=== PATIENT | female | born 1975 | race Caucasian/White ===

== ENCOUNTER 2022-10-25 08:45 | Inpatient (IN) | payer BC, MEDICAID, SELFPAY ==
[2022-10-25] VITALS (8 sets, daily range): BP systolic 99–123; BP diastolic 60–72; PULSE 80–87; RESP 16–20; TEMP 36.8–37; O2SAT 95–99; BMI 28.6
--- NOTE | 2022-10-25 | CT_ITS ---
Ordering Provider/Ordering MD: Lilian Liu Date of Service: 10/25/22 Procedure(s): CT ankle RT wo con* [id number] Accession Number(s): [id number] TOTAL EXAM DLP: 208.48 mGy-cm MTDD
--- NOTE | 2022-10-25 09:38 | XRR_ITS ---
PROCEDURE INFORMATION: Exam: XR Right Ankle Exam date and time: 10/25/2022 9:50 AM Age: 47 years old Clinical indication: Swelling, leg or foot; Prior surgery; Patient HX: PT has had multiple prior surgeries on the RT ankle and leg. PT states that she just had a recent one and was released to walk on it with a boot however, she woke up with a knot on the lateral side of RT ankle; Additional info: Pain/swelling TECHNIQUE: Imaging protocol: Radiologic exam of the Right ankle. Views: 3 or more views. COMPARISON: No relevant prior studies available. FINDINGS: Bones/joints: Along intramedullary ranjeet extends down the tibia and across the tibiotalar and subtalar joints in satisfactory position. There are multiple screws across these joints in satisfactory position. There is deformity of the distal tibia and fibula from old healed fractures. Some patchy new bone formation is present along the lateral aspect of the joint no definite acute bony abnormalities are seen. Soft tissues: Prominent soft tissue swelling. XR/XR ankle RT min 3V* [id number] IMPRESSION: 1. Prominent soft tissue swelling. 2. Chronic bony changes consistent with old trauma and orthopedic surgery.
[2022-10-25] MEDS: ondansetron 2 mg/ML SDV 2 mL 4 MG IVP (11:50)
[2022-10-25] MEDS: morphine 4 mg/mL SDV 1 mL IVP ×2 (11:50→18:33)
[2022-10-25] MEDS: sodium chloride 0.9% 1,000 ML 999 ML IV (11:51)
[2022-10-25 12:23] LABS: Basophils % 0.2 %; Hematocrit 38.4 % (37.0-47.0); Hemoglobin 12.3 g/dL (11.5-15.3); Lymphocytes # 0.8 10^3/uL (0.8-4.8); Lymphocytes % 5.4 %; Mean Corpuscular Hemoglobin 30.4 pg (28.0-34.0); Mean Platelet Volume 12.1 fL (7.4-10.4); Monocytes # 0.7 10^3/uL (0.2-0.9); Neutrophils # 12.68 10^3/uL (1.8-7.7); Neutrophils % 88.5 %; Nucleated Red Blood Cells % 0 %; Platelet Count 201 10^3/cmm (130-400); Red Blood Count 4.04 10^6/uL (4.1-5.3); Red Cell Distribution Width 14.5 % (12.1-15.1); White Blood Count 14.3 10^3/uL (4.0-10.0)
[2022-10-25 12:25] LABS: Erythrocyte Sedimentation Rate 18 mm/hr (0-15)
[2022-10-25 12:35] LABS: Alanine Aminotransferase 9 U/L (0-33); Albumin Level 4.1 g/dL (3.5-5.2); Alkaline Phosphatase 120 U/L (35-105); Anion Gap 15.6 (5-19); Aspartate Amino Transferase 14 U/L (0-32); Blood Urea Nitrogen 19 mg/dL (6-20); Calcium 9.7 mg/dL (8.5-10.5); Carbon Dioxide 23 mmol/L (22-29); Chloride 104 mmol/L (98-107); Globulin 3.7 g/dL (1.3-4.6); Glomerular Filtration Rate 88.9 mL/min (90-130); Glucose 105 mg/dL (65-115); Osmolality Calculated 291 mOsm/kg (285-295); Potassium 3.6 mmol/L (3.5-5.1); Sodium 139 mmol/L (136-145); Total Bilirubin 0.5 mg/dL (0.15-1.2); Total Protein 7.8 g/dL (6.6-8.7)
--- NOTE | 2022-10-25 12:53 | CT_ITS ---
WS: [id number] NONCONTRAST CT RIGHT FOOT AND ANKLE. TECHNIQUE: Noncontrast CT RIGHT foot and ankle. with coronal and sagittal reformatted images. CLINICAL INFORMATION: post-op infection concern for osteomyelitis COMPARISON: None. DLP: All CT scans at [facility] use at least one of these dose optimization techniques: automated e xposure control; mA and/or kV adjustment per patient size (includes targeted exams where dose is matc hed to clinical indication); or iterative reconstruction. FINDINGS: Soft tissue swelling about the foot and ankle. Chronic bony changes compatible with prior trauma and multiple prior surgeries. Intramedullary tibial ranjeet extends across the tibiotalar and subtalar joints appears in good position. Chronic fracture deformities involving the distal tibia and fibula with ev idence of callus formation. Screw fixation across the talocalcaneal joint appears in good position. L ateral screw fixation across the talus appears in good position. Prominent plantar calcaneal spur. Presumed bone graft material or heterotopic bone formation about the ankle along the distal syndesmos is and extending about the lateral malleolus into the soft tissues with associated fluid collection. Fluid collection about the lateral ankle measures approximately 3.1 x 2.5 x 2.8 cm. This may be posto perative. Recommend correlation with infectious symptoms. Diffuse soft tissue edema worse about the l ateral malleolus. CT/CT ankle RT wo con* [id number] IMPRESSION: 1. Extensive posttraumatic and postsurgical changes involving the ankle. No co mparisons. 2. Hardware appears in good position. Distal tibial ranjeet with tibiotalar and s ubtalar fusion. Solid appearing fusion at the tibiotalar joint. 3. Chronic comminuted fracture deformities with evidence of healing callus for mation involving the distal tibia and distal fibula. 4. Fluid collection about the lateral ankle in the area of concern at the late ral malleolus measuring 3.1 x 2.5 x 2.8 cm with surrounding areas of ossificati on likely bone graft material or heterotopic bone formation. This may represent a postoperative fluid collection but is suspicious for infection considering c linical symptoms. 5. Diffuse soft tissue edema with skin thickening lower leg and ankle likely d ue to cellulitis.
--- NOTE | 2022-10-25 12:53 | CT_ITS ---
WS: [id number] NONCONTRAST CONTRAST CT RIGHT FOOT TECHNIQUE: Noncontrast CT RIGHT foot with coronal and sagittal reformatted images. CLINICAL INFORMATION: post-op infection concern for osteomyelitis COMPARISON: None. DLP: 208.[address] scans at [facility] use at least one of these dose optimization techniques: automated e xposure control; mA and/or kV adjustment per patient size (includes targeted exams where dose is matc hed to clinical indication); or iterative reconstruction. FINDINGS: Extensive posttraumatic and postsurgical changes involving the ankle with hardware as discussed on th e concurrent ankle CT. Solid appearing bony bridging at the tibiotalar joint. Distal tibial ranjeet exten ds into the calcaneus. Talocalcaneal fixation screws. Fluid collection about the lateral malleolus as described on the CT ankle with surrounding heterotopi c bone material or bone graft material. This may be postoperative but suspicious for infection consid ering clinical symptoms. Skin thickening lower leg and ankle extending into the foot suspicious for c ellulitis. Diffuse demineralization throughout the foot and ankle. Due to extensive demineralization with postoperative and posttraumatic changes of osteomyelitis difficult to assess and quantify. Fluid collection about the lateral malleolus measures 3.1 x 2[address]/CT foot RT wo con* [id number] IMPRESSION: 1. Postoperative and posttraumatic changes as discussed above. 2. Fluid collection about the lateral malleolus suspicious for infection consi dering clinical symptoms measuring 3.1 x 2.5 x 2.8 cm. 3. Osteomyelitis is difficult to assess due to extensive demineralization with postoperative and posttraumatic deformities.
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
[2022-10-25 13:54] LABS: Lactate (Lactic Acid level) 0.9 mmol/L (0.5-2.2)
[2022-10-25] MEDS: morphine 4 mg/mL SDV 1 mL 2 MG IVP (15:29)
[2022-10-25] MEDS: vancomycin 1,000 MG in sodium chloride 0.9% 250 ML 250 MG IV (15:30)
--- NOTE | 2022-10-25 16:35 | P.CONIM_ITS ---
Providers/Reason For Consult Consulting Physician/Specialty*: Podiatry Reason for Consult*: Right ankle abscess Primary Care Provider: Jason Pulido DO History of Present Illness History of Present Illness Velvet Maloney is a 47 year old female who presents emergency department today 10/25/2022 with red, swollen, painful right ankle. Patient has a history of multiple surgeries to bilateral lower extremities. She most recently underwent a rear foot fusion with TTC nail by Dr. Young in [facility]. She states that her most recent surgery was 6 weeks ago. This past week she was told that she can begin weightbearing as tolerated in cam boot and cast was removed. She states that after bearing weight she had an increase in pain the morning after. She said that her ankle was red hot swollen and painful. This was noticed yesterday 10/24/2022. Her daughter advised her to come into the emergency department for further work-up and evaluation. Upon arriving to the emergency department she was noted to have leukocytosis with a CRP of 313. CT scan was performed which showed abscess to right lateral ankle. Plan was to transfer the patient back to [place] to be managed by her orthopedic team there. However, due to inability to receive new patients she will not be transferred. The plan is now to admit her here to [facility]. Podiatry was consulted for evaluation of the patient's right lower extremity. Patient does endorse nausea and vomiting over the past few days. Review of Systems General: Reports: 10 or more systems reviewed and unremarkable except in HPI and below Const: Reports: change in appetite and malaise; Denies: fever(s), chills or body aches Eyes: Denies: change in vision or blurry vision Card: Denies: chest pain, palpitations or irregular heart rhythm Resp: Denies: dyspnea GI: Reports: nausea and vomiting; Denies: abdominal pain or diarrhea Musc: Reports: extremity pain and joint stiffness Skin/Breast: Reports: skin tenderness and skin swelling; Denies: non-healing lesions or lesions Neuro: Denies: numbness in extremities Medications/Allergies Home Medications Medication Instructions Recorded Confirmed Last Taken Type acetaminophen 500 mg tablet 1,000 mg PO Q6H PRN Pain 10/25/22 10/25/22 Unknown History albuterol sulfate 90 mcg/actuation 2 puff inhalation QID PRN 10/25/22 10/25/22 Unknown History aerosol inhaler Shortness Of Breath bupropion HCl 150 mg tablet,12 hr 150 mg PO BID 10/25/22 10/25/22 10/25/22 History sustained-release celecoxib 100 mg capsule (Celebrex) 100 mg PO BID 10/25/22 10/25/22 10/25/22 History levothyroxine 25 mcg tablet 25 mcg PO QAM 10/25/22 10/25/22 10/25/22 History ropinirole 0.25 mg tablet 0.5 mg PO BEDTIME 10/25/22 10/25/22 10/24/22 History varenicline 1 mg tablet 1 mg PO BID 10/25/22 10/25/22 10/25/22 History Allergies Allergy/AdvReac Type Severity Reaction Status Date / Time No Known Allergies Allergy Verified 10/25/22 08:54 PFSH Acute PFSH: Surgical History (Updated 10/25/22 @ 13:43 by Alexx Caldera DO) History of ankle surgery Vitals/I&O/Wt Last Vital Signs Temp 98.6 F 10/25/22 08:54 Pulse 80 10/25/22 15:00 Resp 16 10/25/22 15:29 BP 99/60 10/25/22 15:00 Pulse Ox 95 10/25/22 15:29 O2 Del Method 10/25/22 08:54 Weight last 48 hrs Weight 167 lb Physical Exam Narrative: GENERAL: A&O x 3 VASCULAR: DP/PT pulses palpable 2/4 with CFT intact, <3seconds to distal digits. Severe edema to right ankle majority of swelling on lateral aspect of right ankle DERMATOLOGICAL: Right lateral ankle is warm to touch in comparison to surrounding skin. No open wounds or skin lesions noted. Diffuse erythema to lateral aspect of right ankle with centralized darkened discoloration over suspected area of abscess. Pain with palpation over the centralized darkened area with underlying fluctuance. MUSCULOSKELETAL: Tenderness with palpation of lateral ankle erythema. NEUROLOGICAL: Neurological sensation to the affected foot and ankle is present through L4-S1 dermatomes with no hyper/hypoesthesias, negative Tinel or Valleix's sign IMAGIN view x-rays of the right ankle that were taken in the emergency department were personally interpreted by me which show orthopedic hardware spanning the ankle joint subtalar joint well intact with no. Hardware radiolucency. No subcutaneous emphysema noted. Significant increase in soft tissue density to the lateral aspect of the right ankle with radiopaque material ballooning from the lateral aspect of the ankle joint likely flowable orthopedic cement. CT scan of the right ankle reviewed which shows fluid accumulation to lateral aspect of ankle at the level of the ankle joint in the area of soft tissue density highly suspicious for abscess. No subcutaneous emphysema visualized on CT scan. Data 10/25/22 11:47 10/25/22 11:47 Micro: Microbiology 10/25/22 13:47 Blood Culture - Preliminary Blood SPECIMEN COLLECTED 10/25/22 13:52 Blood Culture - Preliminary Blood SPECIMEN COLLECTED A&P Assessment and plan (1) Abscess of ankle: (2) Cellulitis of right ankle: (3) Pain in right ankle: Plan -Right lateral ankle abscess -Patient seen and evaluated in the ER -Labs and vitals reviewed -WBC 14.3 -HR 84 -RR 16 -Temp 98.6 -ESR 18 -CRP 313 -N.p.o. at midnight -Plan for OR incision and drainage of right ankle tomorrow 10/26/2022. Discussion was had with the patient regarding incision and drainage of right ankle to prevent worsening infection which could lead to infection of orthopedic hardware and ultimately amputation. Patient has agreed to the plan -Antibiotics: Continue vancomycin pending culture sensitivity from I&D. Discussion had with admitting physician that coverage will be adjusted pending results. Patient will likely need PICC line prior to discharge from hospital. I will discuss further with admitting physician after procedure tomorrow. -Pain: Managed by admitting physician -Weightbearing as tolerated to right foot -Keep right lower extremity elevated -Podiatry will round on patient tomorrow morning prior to surgery Consult Attestations Medical Necessity Statement: See above Coding Level of Care Code Acute Director Of Education And Training for [facility] Fwd Diagnoses Abscess of ankle L02.419 Cellulitis of right ankle L03.115 Pain in right ankle M25.571
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
[2022-10-25] MEDS: sodium chloride 0.9% 1,000 ML 75 ML IV (18:31)
[2022-10-25] MEDS: enoxaparin 40 mg/0.4 mL Syringe SUBCUT (18:32)
[2022-10-25] MEDS: acetaminophen 325 mg Tablet 650 MG PO (21:13)
[2022-10-25] MEDS: ropinirole 0.25 mg Tablet 0.5 MG PO (21:13)
[2022-10-26] VITALS (14 sets, daily range): BP systolic 95–122; BP diastolic 58–73; PULSE 72–90; RESP 14–20; TEMP 36.6–37.9; O2SAT 90–97
[2022-10-26] MEDS: morphine 4 mg/mL SDV 1 mL 2 MG IVP ×2 (00:08→10:34)
[2022-10-26 02:13] LABS: Basophils % 0.3 %; Eosinophils % 0.2 %; Hematocrit 34.3 % (37.0-47.0); Hemoglobin 10.8 g/dL (11.5-15.3); Lymphocytes # 1.4 10^3/uL (0.8-4.8); Lymphocytes % 12.9 %; Mean Corpuscular HGB Conc 31.5 g/dL (30.0-36.0); Mean Corpuscular Hemoglobin 30.3 pg (28.0-34.0); Mean Corpuscular Volume 96.3 fl (81-99); Mean Platelet Volume 12.3 fL (7.4-10.4); Monocytes # 0.7 10^3/uL (0.2-0.9); Monocytes % 6.4 %; Neutrophils # 8.37 10^3/uL (1.8-7.7); Neutrophils % 79.3 %; Nucleated Red Blood Cells % 0 %; Platelet Count 171 10^3/cmm (130-400); Red Blood Count 3.56 10^6/uL (4.1-5.3); Red Cell Distribution Width 14.9 % (12.1-15.1); White Blood Count 10.6 10^3/uL (4.0-10.0)
[2022-10-26 02:29] LABS: Estmated Average Glucose 94; Hemoglobin A1C 4.9 % (4.0-6.0)
[2022-10-26 02:34] LABS: Alanine Aminotransferase 8 U/L (0-33); Albumin Level 3.4 g/dL (3.5-5.2); Alkaline Phosphatase 108 U/L (35-105); Anion Gap 11.2 (5-19); Aspartate Amino Transferase 9 U/L (0-32); Blood Urea Nitrogen 10 mg/dL (6-20); Calcium 9.2 mg/dL (8.5-10.5); Carbon Dioxide 25 mmol/L (22-29); Chloride 105 mmol/L (98-107); Globulin 3.3 g/dL (1.3-4.6); Glomerular Filtration Rate 88.9 mL/min (90-130); Glucose 105 mg/dL (65-115); Osmolality Calculated 285 mOsm/kg (285-295); Potassium 3.2 mmol/L (3.5-5.1); Sodium 138 mmol/L (136-145); Total Bilirubin 0.4 mg/dL (0.15-1.2); Total Protein 6.7 g/dL (6.6-8.7)
[2022-10-26] MEDS: vancomycin 1,500 MG/300 ML PIGGYBACK 200 MG IV ×2 (03:04→16:24)
--- NOTE | 2022-10-26 06:26 | PC.NURSE ---
transported to outpt surgery via stretcher per ENDER Knapp.
--- NOTE | 2022-10-26 06:41 | P.ANESASSM_ITS ---
Pre-Anesthetic Assessment Height/Weight: Height 1.63 m Weight 73.482 kg Temp Pulse Resp BP Pulse Ox O2 Del Method 100.3 F H 90 19 H 112/72 92 10/26/22 04:00 10/26/22 04:00 10/26/22 04:00 10/26/22 04:00 10/26/22 04:00 10/25/22 20:52 Operation Date: 10/26/22 07:10 Proposed Procedures p Incision And Drainage of right ankle(Right) - Swapnil Browne DPM Familial anesthetic complications: None Was Beta Mumtaz taken within 24 hours: N/A Was Clonidine taken within 24 hours: N/A Last intake: Intake Last Liquid Date 10/25/22 Last Liquid Time 21:00 Last Solid Date 10/25/22 Last Solid Time 19:00 Social No alcohol and No tobacco Former smoker - recent quit Exam alert, oriented x 3, clear to auscultation bilaterally and regular rate & rhythm Airway Mallampati: Class II Dentition: other (no teeth) Pulmonary Chronic Obstructive Pulmonary Disease Metabolic Thyroid Disease Anesthetic Plan ASA status: 3 Anesthesia: MAC Risk of > 500 ml blood loss (7ml/kg in children): No Medications/Allergies Home Medications Medication Instructions Recorded Confirmed Last Taken Type acetaminophen 500 mg tablet 1,000 mg PO Q6H PRN Pain 10/25/22 10/25/22 Unknown History albuterol sulfate 90 mcg/actuation 2 puff inhalation QID PRN 10/25/22 10/25/22 Unknown History aerosol inhaler Shortness Of Breath bupropion HCl 150 mg tablet,12 hr 150 mg PO BID 10/25/22 10/25/22 10/25/22 History sustained-release celecoxib 100 mg capsule (Celebrex) 100 mg PO BID 10/25/22 10/25/22 10/25/22 History levothyroxine 25 mcg tablet 25 mcg PO QAM 10/25/22 10/25/22 10/25/22 History ropinirole 0.25 mg tablet 0.5 mg PO BEDTIME 10/25/22 10/25/22 10/24/22 History varenicline 1 mg tablet 1 mg PO BID 10/25/22 10/25/22 10/25/22 History Allergies Allergy/AdvReac Type Severity Reaction Status Date / Time No Known Allergies Allergy Verified 10/25/22 08:54 Current Medications Generic Name Dose Route Start Last Admin Trade Name Freq PRN Reason Stop Dose Admin Acetaminophen 650 mg 10/25/22 18:03 10/25/22 21:13 Acetaminophen 325 Mg Tablet PO 650 mg Q6H PRN Administration Mild/Mod Pain Or Temp >/= 101 Enoxaparin Sodium 40 mg 10/25/22 18:15 10/25/22 18:32 Enoxaparin 40 Mg/0.4 Ml Syringe SUBCUT 40 mg Q24H BONG Administration Sodium Chloride 1,000 mls @ 75 mls/hr 10/25/22 18:15 10/25/22 18:31 Sodium Chloride 0.9% IV 75 mls/hr .[id number] BONG Administration Sodium Chloride 1,000 mls @ 100 mls/hr 10/25/22 18:11 10/25/22 18:42 Sodium Chloride 0.9% IV Not Given .Q10H BONG Vancomycin/PEG/NADA/Lysine/Water 1,500 mg in 300 mls @ 200 mls/hr 10/26/22 03:30 10/26/22 03:04 Vancocin IV 200 mls/hr Q12H BONG Administration Levothyroxine Sodium 25 mcg 10/26/22 06:00 10/26/22 05:20 Levothyroxine 25 Mcg Tablet PO Not Given QAM BONG Morphine Sulfate 2 mg 10/25/22 18:03 10/26/22 00:08 Morphine 4 Mg/Ml Sdv 1 Ml IVP 2 mg Q4H PRN Administration SEVERE PAIN Morphine Sulfate 4 mg 10/25/22 18:11 10/25/22 18:33 Morphine 4 Mg/Ml Sdv 1 Ml IVP 4 mg Q4H PRN Administration SEVERE PAIN Ropinirole HCl 0.5 mg 10/25/22 21:00 10/25/22 21:13 Ropinirole 0.25 Mg Tablet PO 0.5 mg BEDTIME BONG Administration [facility] Anesthesia Medical History (Updated 10/26/22 @ 05:59 by Alexx Caldera DO) COPD (chronic obstructive pulmonary disease) Hypothyroidism Surgical History History of ankle surgery Social History (Updated 10/26/22 @ 05:59 by Alexx Caldera DO) Smoking and tobacco status: current some day smoker Alcohol intake: never Data Anesthesia 10/26/22 01:23 10/26/22 01:23 Short CBC 10/25/22 10/26/22 Range/Units 11:47 01:23 WBC 14.3 H 10.6 H (4.0-10.0) 10^3/uL Hgb 12.3 10.8 L (11.5-15.3) g/dL Hct 38.4 34.3 L (37.0-47.0) % MCV 95.0 96.3 (81-99) fl Plt Count 201 171 (130-400) 10^3/cmm Neut % (Auto) 88.5 79.3 % Neut # (Auto) 12.68 H 8.37 H (1.8-7.7) 10^3/uL BMP 10/25/22 10/26/22 11:47 01:23 Sodium 139 138 Potassium 3.6 3.2 L Chloride 104 105 Carbon Dioxide 23 25 BUN 19 10 Creatinine 0.7 0.7 Glucose 105 105 Calcium 9.7 9.2 Liver Function 10/25/22 10/26/22 Range/Units 11:47 01:23 Total Bilirubin 0.5 0.4 (0.15-1.2) mg/dL AST 14 9 (0-32) U/L ALT 9 8 (0-33) U/L Alkaline Phosphatase 120 H 108 H (35-105) U/L Albumin 4.1 3.4 L (3.5-5.2) g/dL Coags 10/25/22 10/25/22 11:47 11:47 ESR 18 H C-Reactive Protein 313.0 H Microbiology 10/25/22 13:47 Blood Culture - Preliminary Blood SPECIMEN COLLECTED 10/25/22 13:52 Blood Culture - Preliminary Blood SPECIMEN COLLECTED Cardiac Studies: No Data to Display
--- NOTE | 2022-10-26 06:44 | W.PM.OPSUD ---
Surgery/Procedure H&P Update DATE OF PROCEDURE: October 26, 2022 DATE H&P PERFORMED: 10/25/22 CHANGES TO PREVIOUS DOCUMENTATION: No changes PRIMARY INDICATION FOR PROCEDURE: Right ankle abscess PLANNED PROCEDURE: Operation Date: 10/26/22 07:10 Proposed Procedures p Incision And Drainage of right ankle(Right) - Swapnil Browne DPM
--- NOTE | 2022-10-26 07:40 | P.PCN_ITS ---
PACU note Narrative: VSS, Good respiratory effort, report to BAR GAUGER AND LUBRICATOR TENDER Exam: awake
--- NOTE | 2022-10-26 07:40 | PM.PACU ---
PACU note Narrative: VSS, Good respiratory effort, report to RAILROAD DINING CAR STEWARD/STEWARDESS Exam: awake
--- NOTE | 2022-10-26 09:09 | PM.OP ---
Operative Report Date of procedure: October 26, 2022 Pre-op diagnosis: Right foot ankle deep space abscess Post-op diagnosis: Same Post-op findings: Abscess with approximately 20 cc's purulence to right lateral ankle. Purulence and depth of abscess extends to subtalar joint and orthopedic hardware. Infection did not follow the course of peroneal tendons proximally or distally. Tracking medially into subtalar joint Procedure done: Right ankle abscess incision and drainage Implants: None Specimens removed/disposition: Aerobic and anaerobic cultures of right ankle abscess sent to [facility] for ID and sensitivity Pathology: None Surgeon: Natalia Galvan.P.M. Estimated blood loss: 15 cc No tourniquet used Complications: None Findings: See above Brief History: Patient has undergone multiple bilateral lower extremity reconstructive surgeries. Her most recent surgery was 6 to 8 weeks ago at [facility]. Patient was told this last week to begin weightbearing as her cast was removed. After beginning weightbearing she had increased pain to the right ankle which worsened overnight. She awoke the morning of October 24, 2022 with a red hot swollen ankle. She came to the emergency department here at [facility] for further work-up and evaluation. I was consulted to evaluate and provide further recommendations. Upon work-up large painful abscess to right lateral ankle was evaluated. The patient presented with subjective nausea and vomiting over the course of the past day. Labs showed an elevated white count of 14.3, elevated CRP at 313. Patient was given dose of vancomycin in the ED. CT scan of the right lower ankle was obtained which showed fluid collection in the lateral ankle soft tissues consistent with abscess. Given the condition of the patient it was deemed necessary to admit her for incision and drainage in the operating room this morning 10/26/2022. Overnight, the patient's temp and respirations spiked in comparison to the emergency department. The white count did trend down. Patient complained of increased pain to the right ankle just since admission. Patient was brought to the operating room this morning 10/26/2022 for incision and drainage of right ankle abscess Procedure: Patient is a 47-year-old female that has the above-mentioned history. A lengthy discussion regarding the procedure, including risks and complications has been had with the patient and is noted in the recent clinic note. Written and verbal consent have been obtained. All patient questions have been answered to the patient?s satisfaction. No written or verbal guarantees have been given or implied. The patient has been NPO since midnight. The history has been reviewed and the history and physical is current. The signed consent was confirmed and placed in the patient chart. Patient imaging has been reviewed and is consistent with thediagnosis. Under mild sedation, the patient was brought into the operating room and placed on the table in the supine position. IV sedation was then performed by the anesthesia team. 20 cc of 0.5% Marcaine plain was then used to anesthetize the right ankle. The right lower extremity was then prepped and draped in standard fashion. The following procedure was then performed. Attention was directed to the lateral aspect of the right ankle where significant erythema was noted with central discoloration and underlying fluctuance consistent with abscess. Drainage noted to be coming from centralized darkened area of lateral ankle was frankly purulent. A #15 blade was used to make a 3 cm incision over this area of abscess. There was an immediate eruption of davis purulent drainage from the area. This was expressed manually. Cultures both aerobic and anaerobic were taken at this time and sent to [facility] for ID and sensitivity. The site was then irrigated with 3000 cc of sterile saline using cystoscopy tubing. The area of abscess was assessed for any tracking. A [place] was used to palpate the margins of the abscess. It was noted to not track proximally or distally along the peroneal course. However, it did track medially into the subtalar joint where orthopedic hardware was palpable using the [place] elevator. On expression of the foot and ankle no further purulence was noted to be coming from the area. After irrigation, the abscess site was packed with 1/4 inch packing gauze. The site was then dressed with sterile 4 x 4 gauze, Kerlix and light compression with 4 inch Amanuel bandage. The patient tolerated the procedure and anesthesia well and without complication. The patient was transported from the operating room to the recovery room with vital signs stable and vascular status intact to all digits of the right foot. The patient was instructed to remain nonweightbearing to the operative extremity, to keep surgical dressing clean, dry and intact. The patient will be transferred back to the floor once anesthesia criteria is met. I will continue to round on and follow the patient in the inpatient setting and provide recommendations to stabilize the patient for discharge. Given the intraoperative findings it is my recommendation that patient receive a PICC line for long-term IV antibiotic therapy beyond this hospital admission.
[2022-10-26] MEDS: CELEcoxib 100 mg Capsule PO ×2 (10:24→17:37)
[2022-10-26] MEDS: buPROPion SR (12 HR) 150 mg Tablet PO ×2 (10:24→17:53)
--- NOTE | 2022-10-26 10:28 | PC.CHAP ---
Pastoral Care Encounter/Spiritual Assessment Type of Contact [] Declined office nurse visit [] Patient/Family/Request visit [] Outpatient visit [] Follow-up visit [] Physician referral [] Code/Alert [x] Routine visit [] Staff referral [] Actively dying [] Patient sleeping [] Family support [] [] Out of room [] Palliative care [] [] Receiving care in room [] Pre-surgical visit [] Trauma [] Long length of stay [] ICU visit [] Other: Relational/Emotional Strength [x] Patient feels connected with others/family/visitors/staff [] Distress [] Loneliness/isolation [] Abandonment Spirituality of Patient [x] Person of Abby [] Attends Mormonism of their Abby [x] Believes in Prayer [] Reads Bible or Jewish materials [] There are Spiritual issues to be addressed 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 Interventions [x] Prayer [] Active listening [] Non-anxious presence [] Spiritual/emotional support [] Crisis/trauma care [] Spiritual counseling [] Bereavement support [] Provided bereavement packet [] Provided Bible/devotional materials [] Provided toy/stuffed animal, coloring book to patient or family member [] Provided Communion [] Anointing/[place] [] Salvation [x] Completed spiritual assessment [] Other: Impact on Illness or Injury [] Angry [] Fearful [] Anxious [] Often cries [] Exhaustion [] Unable to work [] Unable to attend pentecostalism [] Unable to walk/stand [] Unable to read [] Unable to drive [] Unable to eat/drink [] Unable to sleep [] Unable to be with family [] Patient intubated [] Other: Summary Time spent with patient 5 min
--- NOTE | 2022-10-26 13:57 | ANE.PACU2 ---
Inpatient post-anesthesia follow up: Airway intact: Yes Vital signs: Temperature 98 F Pulse Rate 88 Respiratory Rate 17 Blood Pressure 101/64 Pulse Oximetry 90 Oxygen Delivery Me thod Room Air Oxygen Flow Rate Fraction of Inspir ed Oxygen Hydration adequate: Yes Nausea and vomiting: No Pain level: 1 Mental status: Baseline
[2022-10-26] MEDS: cefepime 2,000 MG in sodium chloride 0.9% (plus) 50 ML 100 MG IV (14:53)
--- NOTE | 2022-10-26 16:05 | P.PN_ITS ---
Subjective Subjective: Status post I&D of her joint this morning. Pain is relieved after undergoing I&D. White blood cell count is trending down at 10.6 today. Cultures taken from the OR are still pending. Medications: Reviewed: Yes Vitals/I&O/Wt Last Vital Signs Temp 98 F 10/26/22 08:00 Pulse 88 10/26/22 12:00 Resp 17 10/26/22 12:00 BP 101/64 10/26/22 12:00 Pulse Ox 90 10/26/22 12:00 O2 Del Method 10/26/22 10:13 10/26/22 10/26/22 10/26/22 06:59 14:59 22:59 Intake Total 0 / 1730 910 / 910 Output Total 1200 / 1200 30 / 30 Balance -1200 / 530 880 / 880 Weight last 48 hrs Weight 73.482 kg Weight 75.75 kg Weight 75.75 kg Physical Exam Narrative: General: No acute distress, AO x3 HEENT: PERRLA, pupils bilaterally equal and reactive, pallors not present Chest: Normal vesicular breath sounds, no added sounds, equal good air entry bilaterally CVS: S1-S2 regular, no murmurs, no tachycardia, no gallops, no rubs Abdomen: Soft, nontender, no organomegaly, bowel sounds present Neuro: No focal deficits, no facial deformity, AO x3, power 5/5 in all limbs Extremities: Right ankle with surgical dressing in place, not open for exam today. Data 10/26/22 01:23 10/26/22 01:23 Micro: Microbiology 10/25/22 13:47 Blood Culture - Preliminary Blood NEGATIVE TO DATE 10/25/22 13:52 Blood Culture - Preliminary Blood NEGATIVE TO DATE A&P Assessment and plan (1) Cellulitis of right ankle: (2) Abscess of ankle: Plan Patient presenting with acute swelling around the right ankle after recently having undergone surgery and hardware placement [address] shows fluid collection about the lateral ankle in the area of concern at the lateral malleolus measuring 3.1 x 2.5 x 2.8 cm with surrounding areas of ossif ication likely bone graft material or heterotopic bone formation. Status post I&D in the OR with Dr. Awad today. Purulence and depth of abscess extended to subtalar joint and orthopedic hardware. Cultures have been sent. She has been started on treatment with IV vancomycin empirically. We will add cefepime 2 g IV every 12 now that cultures have been obtained. Podiatry consult appreciated Blood cx taken and pending thus far negative to date. Overall her clinical picture is that of septic ankle joint with extension of infection into the hardware. Patient will need long-term IV antibiotics, at least 6 to 8 weeks initially. Final selection of antibiotic to be dependent on culture results. Will arrange for PICC line on Saturday (cannot be placed over the weekend) and arrange for antibiotics based on susceptibility and culture data. Patient has requested a transfer to [place] under the care of her regular surgeons. She is currently on the wait list for transfer, procedure needed to be done here to prevent any further spread of infection. Attestations Medical Necessity Statement*: IV antibiotics for septic arthritis, close clinical monitoring, arrange for PICC line and long-term IV antibiotics. Coding Level of Care Code Acute Acquisition Professional for Zara Vang Diagnoses Cellulitis of right ankle L03.115 Abscess of ankle L02.419
[2022-10-26] MEDS: enoxaparin 40 mg/0.4 mL Syringe SUBCUT (17:37)
[2022-10-26] MEDS: ropinirole 0.25 mg Tablet 0.5 MG PO (21:00)
[2022-10-26] MEDS: sodium chloride 0.9% 1,000 ML 75 ML IV (21:03)
[2022-10-27] VITALS (8 sets, daily range): BP systolic 109–144; BP diastolic 69–78; PULSE 76–81; RESP 16–20; TEMP 36.7–37.1; O2SAT 96–98
[2022-10-27] MEDS: cefepime 2,000 MG in sodium chloride 0.9% (plus) 50 ML 100 MG IV ×2 (01:18→12:53)
[2022-10-27 02:40] LABS: Basophils % 0.3 %; Eosinophils # 0.1 10^3/uL (0.0-0.8); Eosinophils % 0.7 %; Hematocrit 29.9 % (37.0-47.0); Hemoglobin 9.2 g/dL (11.5-15.3); Lymphocytes # 1.3 10^3/uL (0.8-4.8); Lymphocytes % 16.4 %; Mean Corpuscular HGB Conc 30.8 g/dL (30.0-36.0); Mean Corpuscular Hemoglobin 29.8 pg (28.0-34.0); Mean Corpuscular Volume 96.8 fl (81-99); Mean Platelet Volume 11.8 fL (7.4-10.4); Monocytes # 0.5 10^3/uL (0.2-0.9); Monocytes % 7.1 %; Neutrophils # 5.74 10^3/uL (1.8-7.7); Nucleated Red Blood Cells % 0 %; Platelet Count 159 10^3/cmm (130-400); Red Blood Count 3.09 10^6/uL (4.1-5.3); Red Cell Distribution Width 14.7 % (12.1-15.1); White Blood Count 7.6 10^3/uL (4.0-10.0)
[2022-10-27] MEDS: vancomycin 1,500 MG/300 ML PIGGYBACK 200 MG IV ×2 (03:09→14:31)
[2022-10-27 03:11] LABS: Alanine Aminotransferase 8 U/L (0-33); Albumin Level 2.8 g/dL (3.5-5.2); Alkaline Phosphatase 123 U/L (35-105); Aspartate Amino Transferase 10 U/L (0-32); Blood Urea Nitrogen 11 mg/dL (6-20); Calcium 8.6 mg/dL (8.5-10.5); Carbon Dioxide 23 mmol/L (22-29); Chloride 104 mmol/L (98-107); Creatinine Clr Calc Pharmacy 95.4794; Globulin 3.5 g/dL (1.3-4.6); Glomerular Filtration Rate 88.9 mL/min (90-130); Glucose 105 mg/dL (65-115); Osmolality Calculated 278 mOsm/kg (285-295); Sodium 134 mmol/L (136-145); Total Bilirubin 0.3 mg/dL (0.15-1.2); Total Protein 6.3 g/dL (6.6-8.7)
[2022-10-27 03:12] LABS: Vancomycin Trough 10.2 ug/mL (10-15)
[2022-10-27] MEDS: levothyroxine 25 mcg Tablet PO (05:28)
--- NOTE | 2022-10-27 07:17 | P.PN_ITS ---
Subjective Subjective: Patient seen at bedside this morning day 1 status post right ankle incision and drainage. Patient states that her pain is much improved in comparison to yesterday. She has not taken any pain medication at this time. She denies any overnight events including fever, chills, nausea, vomiting. I d iscussed with the patient at bedside that she will be staying to the weekend for PICC line placement on Saturday. Patient was agreeable to this plan. She states that she is just happy to be pain-free. She denies any other pedal complaints at this time. Vitals/I&O/Wt Last Vital Signs Temp 98.3 F 10/27/22 04:00 Pulse 77 10/27/22 04:00 Resp 17 10/27/22 04:00 BP 128/75 10/27/22 04:00 Pulse Ox 96 10/27/22 04:00 O2 Del Method 10/26/22 21:47 10/26/22 10/27/22 10/27/22 22:59 06:59 14:59 Intake Total 2080 / 2990 1040 / 4030 Output Total 1200 / 1230 1000 / 2230 Balance 880 / 1760 40 / 1800 Weight last 48 hrs Weight 163 lb 14.4 oz Weight 162 lb Weight 167 lb Weight 167 lb Physical Exam Narrative: GENERAL: A&O x 3 VASCULAR: DP/PT pulses palpable 2/4 with CFT intact, <3seconds to distal digits. Severe edema to right ankle majority of swelling on lateral aspect of right ankle DERMATOLOGICAL: Right ankle surgical dressing intact this morning, clean with no strikethrough. MUSCULOSKELETAL: No tenderness with palpation of lateral right ankle NEUROLOGICAL: Neurological sensation to the affected foot and ankle is present through L4-S1 dermatomes with no hyper/hypoesthesias, negative Tinel or Valleix's sign Data 10/27/22 02:32 10/27/22 02:32 Micro: Microbiology 10/25/22 13:47 Blood Culture - Preliminary Blood NEGATIVE TO DATE 10/25/22 13:52 Blood Culture - Preliminary Blood NEGATIVE TO DATE A&P Assessment and plan (1) Abscess of ankle: (2) Cellulitis of right ankle: (3) Pain in right ankle: Plan -Right lateral ankle abscess -Status post right ankle incision and drainage DOS: 10/26/2022 -Labs and vitals reviewed -WBC 7.6 down from 14.3 -HR 77 -RR 17 -Temp 98.3 -ESR 18 -CRP 313 -Cultures: Pending -Okay for diet from podiatry standpoint -Plan for delayed primary closure of right ankle, possibly 10/29/2022. I will assess incision tomorrow at bedside -Antibiotics: Vanco/cefepime pending ID and sensitivity -Pain: Managed by admitting physician -Weightbearing as tolerated to right foot -Keep right lower extremity elevated -Patient will need PICC line placement (10/29/2022) and will require long-term IV antibiotics. This was discussed with Dr. Aly -Podiatry will round on patient tomorrow morning Attestations Medical Necessity Statement*: See above Coding Level of Care Code Acute Building Official for Zara Vang Diagnoses Abscess of ankle L02.419 Cellulitis of right ankle L03.115 Pain in right ankle M25.571
[2022-10-27] MEDS: buPROPion SR (12 HR) 150 mg Tablet PO ×2 (08:50→17:21)
[2022-10-27] MEDS: CELEcoxib 100 mg Capsule PO (08:50)
[2022-10-27] MEDS: sodium chloride 0.9% 1,000 ML 75 ML IV (08:51)
[2022-10-27] MEDS: potassium chloride ER 20 mEq Tablet 40 MEQ PO (09:47)
--- NOTE | 2022-10-27 14:39 | PM.PN ---
Subjective Subjective: Patient was seen this morning, she has no complaints, no fevers, no chills, she declines transfer to [facility] at this time, she tells me that she is okay to stay here, she has some swelling of her right arm where she had an IV that was removed Vitals/I&O/Wt Last Vital Signs Temp 98.6 F 10/27/22 12:00 Pulse 76 10/27/22 12:00 Resp 16 10/27/22 12:00 BP 115/69 10/27/22 12:00 Pulse Ox 97 10/27/22 12:00 O2 Del Method 10/27/22 12:00 10/26/22 10/27/22 10/27/22 22:59 06:59 14:59 Intake Total 2080 / 2990 1040 / 4030 1415 / 1415 Output Total 1200 / 1230 1000 / 2230 Balance 880 / 1760 40 / 1800 1415 / 1415 Weight last 48 hrs Weight 74.344 kg Weight 73.482 kg Weight 75.75 kg Physical Exam Const: COMMON NORMALS: no acute distress and patient oriented x3 Resp: COMMON NORMALS: normal respiratory effort, No retractions, No use of accessory muscles and clear to auscultation bilaterally AUSCULTATION: clear to auscultation bilaterally Cardio: COMMON NORMALS: regular rate, regular rhythm, S1 normal heart sound present and S2 normal heart sound present RATE: regular rate RHYTHM: regular rhythm HEART SOUNDS: S1 normal heart sound present and S2 normal heart sound present GI: COMMON NORMALS: Normal to inspection, nondistended, normoactive bowel sounds present and non-tender Extremity: COMMON NORMALS: no pedal edema Neuro: COMMON NORMALS: patient oriented x3 Psych: COMMON NORMALS: mental status grossly normal Data 10/27/22 02:32 10/27/22 02:32 Micro: Microbiology 10/25/22 13:47 Blood Culture - Preliminary Blood NEGATIVE TO DATE 10/25/22 13:52 Blood Culture - Preliminary Blood NEGATIVE TO DATE A&P Assessment and plan (1) Abscess of ankle: (2) Cellulitis of right ankle: (3) Pain in right ankle: Plan -Right ankle abscess -CT showed CT shows fluid collection about the lateral ankle in the area of concern at the lateral malleolus measuring 3.1 x 2.5 x 2.8 cm with surrounding areas of ossification likely bone graft material or heterotopic bone formation. -Status post right ankle incision and drainage by podiatry service -With plans on delayed primary closure -Follow blood cultures -Follow surgical cultures -Plan on PICC line on Saturday, with only 6 weeks of IV antibiotics -Continue vancomycin, cefepime -Weightbearing as tolerated -Full code -Lovenox for DVT prophylaxis Attestations Medical Necessity Statement*: Patient requires hospitalization for due to right lateral ankle abscess Coding Level of Care Code Acute Wind Turbine Engineer for samuel Vang Diagnoses Abscess of ankle L02.419 Cellulitis of right ankle L03.115 Pain in right ankle M25.571
--- NOTE | 2022-10-27 16:52 | PC.NURSE ---
[facility] called about transfer of patient, RN Varun Rich had a room available however patient told Dr. Blanc that she does not want to transfer so the transfer has been canceled at this time.
[2022-10-27] MEDS: enoxaparin 40 mg/0.4 mL Syringe SUBCUT (17:21)
--- NOTE | 2022-10-27 17:59 | PC.NURSE ---
Patient resting in bed, minimal c/o pain, frequently turning self in bed, AAOx4, VSS, OOBT BSC pivoting. Dressing clean dry and intact. Room clean and clutter free with call light in reach. Good UOP, no BM, tolerating diet, no new events. All questions and concerns addressed throughout shift, no needs at this time, will continue to monitor until nurse handoff at shift change.
[2022-10-27] MEDS: ropinirole 0.25 mg Tablet 0.5 MG PO (21:47)
[2022-10-28] VITALS (9 sets, daily range): BP systolic 111–129; BP diastolic 69–82; PULSE 71–85; RESP 17–20; TEMP 36.7–37.6; O2SAT 95–98
[2022-10-28] MEDS: cefepime 2,000 MG in sodium chloride 0.9% (plus) 50 ML 100 MG IV ×2 (01:40→12:47)
[2022-10-28] MEDS: vancomycin 1,500 MG/300 ML PIGGYBACK 200 MG IV ×2 (03:08→15:51)
[2022-10-28] MEDS: acetaminophen 325 mg Tablet 650 MG PO (04:19)
--- NOTE | 2022-10-28 04:22 | PC.NURSE ---
Patient woke up in pain. This nurse arrived to room, patient was sitting up in bed crying in pain. PO Tylenol administered, patient educated to inform nurse if pain hasn't helped within half an hour and to not hesitate to ask for more/stronger pain medicine. Patient resting in bed, locked in lowest position with both side rails up and call light within reach.
[2022-10-28 05:15] LABS: Basophils % 0.3 %; Eosinophils % 0.3 %; Hematocrit 29.2 % (37.0-47.0); Hemoglobin 9.4 g/dL (11.5-15.3); Lymphocytes # 1.5 10^3/uL (0.8-4.8); Lymphocytes % 23.9 %; Mean Corpuscular HGB Conc 32.2 g/dL (30.0-36.0); Mean Corpuscular Hemoglobin 30.1 pg (28.0-34.0); Mean Corpuscular Volume 93.6 fl (81-99); Mean Platelet Volume 11.7 fL (7.4-10.4); Monocytes # 0.5 10^3/uL (0.2-0.9); Monocytes % 8.6 %; Neutrophils # 4.01 10^3/uL (1.8-7.7); Neutrophils % 66.2 %; Nucleated Red Blood Cells % 0 %; Platelet Count 205 10^3/cmm (130-400); Red Blood Count 3.12 10^6/uL (4.1-5.3); Red Cell Distribution Width 14.6 % (12.1-15.1); White Blood Count 6.1 10^3/uL (4.0-10.0)
[2022-10-28] MEDS: levothyroxine 25 mcg Tablet PO (05:28)
[2022-10-28 05:39] LABS: Anion Gap 15.2 (5-19); Blood Urea Nitrogen 8 mg/dL (6-20); C Reactive Protein 165.7 mg/L (0.0-4.9); Calcium 8.8 mg/dL (8.5-10.5); Carbon Dioxide 22 mmol/L (22-29); Chloride 101 mmol/L (98-107); Glomerular Filtration Rate 106.3 mL/min (90-130); Glucose 112 mg/dL (65-115); Magnesium 1.8 mg/dL (1.7-2.3); Osmolality Calculated 279 mOsm/kg (285-295); Potassium 3.2 mmol/L (3.5-5.1); Sodium 135 mmol/L (136-145)
[2022-10-28 05:46] LABS: Procalcitonin 0.74 ng/mL (0-0.5)
[2022-10-28] MEDS: morphine 4 mg/mL SDV 1 mL 2 MG IVP (08:05)
--- NOTE | 2022-10-28 08:12 | PM.PN ---
Subjective Subjective: Patient was seen at bedside this morning. Patient states that she is experiencing a little bit more pain and swelling in her right ankle in comparison to yesterday and the day before. She does state however that the pain is still much improved in comparison to what it was when she initially came into the hospital. She denies any fever, chills, nausea, vomiting, shortness of breath, chest pain. Denies any other pedal complaints at this time. Vitals/I&O/Wt Last Vital Signs Temp 98.1 F 10/28/22 07:27 Pulse 71 10/28/22 07:27 Resp 18 10/28/22 08:05 BP 118/73 10/28/22 07:27 Pulse Ox 98 10/28/22 08:05 O2 Del Method 10/28/22 07:27 10/27/22 10/28/22 10/28/22 22:59 06:59 14:59 Intake Total 1661.25 / 3076.25 1150 / 4226.25 400 / 400 Output Total 1200 / 1200 1500 / 2700 Balance 461.25 / 1876.25 -350 / 1526.25 400 / 400 Weight last 48 hrs Weight 163 lb 4.8 oz Weight 163 lb 14.4 oz Physical Exam Narrative: GENERAL: A&O x 3 VASCULAR: DP/PT pulses palpable 2/4 with CFT intact, <3seconds to distal digits. Edema to right ankle laterally DERMATOLOGICAL: Right lateral ankle incision shows mild maceration. Packing removed which was noted to be saturated. Erythema continues to improve. Erythema still noted circumferentially around incision. No active drainage or purulence. MUSCULOSKELETAL: tenderness with palpation of lateral right ankle NEUROLOGICAL: Neurological sensation to the affected foot and ankle is present through L4-S1 dermatomes with no hyper/hypoesthesias, negative Tinel or Valleix's sign Data 10/28/22 04:25 10/28/22 04:25 Micro: Microbiology 10/26/22 07:15 Anaerobic Culture - Preliminary Ankle - #2 10/26/22 07:15 Gram Stain - Final Ankle - #1 Abscess Culture - Preliminary Coag positive Staphylococcus A&P Assessment and plan (1) Abscess of ankle: (2) Cellulitis of right ankle: (3) Pain in right ankle: Plan -Right lateral ankle abscess -Status post right ankle incision and drainage DOS: 10/26/2022 -Labs and vitals reviewed VSS -ESR 18 -CRP 313 -Cultures: Coag positive staph -N.p.o. at midnight for procedure 10/29/2022 -Plan for delayed primary closure of right ankle tomorrow 10/29/2022 -Antibiotics: Vanco/cefepime pending ID and sensitivity -Pain: Managed by admitting physician -Weightbearing as tolerated to right foot -Keep right lower extremity elevated -Patient will need PICC line placement (10/29/2022) and will require long-term IV antibiotics. This was discussed with Dr. Aly -Anticipate discharge next week, likely 10/30/2022 -Podiatry will round on patient tomorrow morning Attestations Medical Necessity Statement*: See above Coding Level of Care Code Acute Secondary Connector Armature for Zara Vang Diagnoses Abscess of ankle L02.419 Cellulitis of right ankle L03.115 Pain in right ankle M25.571
[2022-10-28] MEDS: buPROPion SR (12 HR) 150 mg Tablet PO ×2 (08:18→17:28)
[2022-10-28] MEDS: potassium chloride ER 20 mEq Tablet 40 MEQ PO (08:30)
--- NOTE | 2022-10-28 13:20 | PM.PN ---
Subjective Subjective: Patient was seen this morning, she overall feels better, no fevers overnight Vitals/I&O/Wt Last Vital Signs Temp 98.4 F 10/28/22 11:40 Pulse 75 10/28/22 11:40 Resp 18 10/28/22 11:40 BP 112/70 10/28/22 11:40 Pulse Ox 97 10/28/22 11:40 O2 Del Method 10/28/22 11:40 10/27/22 10/28/22 10/28/22 22:59 06:59 14:59 Intake Total 1661.25 / 3076.25 1150 / 4226.25 640 / 640 Output Total 1200 / 1200 1500 / 2700 Balance 461.25 / 1876.25 -350 / 1526.25 640 / 640 Weight last 48 hrs Weight 74.072 kg Weight 74.344 kg Physical Exam Const: COMMON NORMALS: no acute distress and patient oriented x3 Resp: COMMON NORMALS: normal respiratory effort, No retractions, No use of accessory muscles and clear to auscultation bilaterally AUSCULTATION: clear to auscultation bilaterally Cardio: COMMON NORMALS: regular rate, regular rhythm, S1 normal heart sound present and S2 normal heart sound present RATE: regular rate RHYTHM: regular rhythm HEART SOUNDS: S1 normal heart sound present and S2 normal heart sound present GI: COMMON NORMALS: Normal to inspection, nondistended, normoactive bowel sounds present and non-tender Extremity: COMMON NORMALS: no pedal edema NARRATIVE EXTREMITY EXAM: Right lower extremity wrapped and bandaged Neuro: COMMON NORMALS: patient oriented x3 Psych: COMMON NORMALS: mental status grossly normal Data 10/28/22 04:25 10/28/22 04:25 Micro: Microbiology 10/26/22 07:15 Anaerobic Culture - Preliminary Ankle - #2 10/26/22 07:15 Gram Stain - Final Ankle - #1 Abscess Culture - Preliminary Coag positive Staphylococcus A&P Assessment and plan (1) Abscess of ankle: (2) Cellulitis of right ankle: (3) Pain in right ankle: Plan -Right ankle abscess -CT showed CT shows fluid collection about the lateral ankle in the area of concern at the lateral malleolus measuring 3.1 x 2.5 x 2.8 cm with surrounding areas of ossification likely bone graft material or heterotopic bone formation. -Status post right ankle incision and drainage by podiatry service -With plans on delayed primary closure tomorrow, n.p.o. midnight -Follow blood cultures -Follow surgical cultures -Plan on PICC line on Saturday, with only 6 weeks of IV antibiotics -Continue vancomycin, cefepime -Culture showing staph species -Weightbearing as tolerated -Full code -Lovenox for DVT prophylaxis Attestations Medical Necessity Statement*: Patient requires hospitalization for right ankle abscess Coding Level of Care Code Acute Continuous Improvement Lead for Zara Vang Diagnoses Abscess of ankle L02.419 Cellulitis of right ankle L03.115 Pain in right ankle M25.571
[2022-10-28] MEDS: enoxaparin 40 mg/0.4 mL Syringe SUBCUT (17:28)
[2022-10-28] MEDS: ropinirole 0.25 mg Tablet 0.5 MG PO (21:00)
[2022-10-29] VITALS (15 sets, daily range): BP systolic 93–148; BP diastolic 60–82; PULSE 60–77; RESP 16–18; TEMP 36.3–37.3; O2SAT 95–100
--- NOTE | 2022-10-29 00:34 | PC.NURSE ---
Patient NPO since midnight for surgical procedure this morning
[2022-10-29 02:11] LABS: Basophils % 0.6 %; Eosinophils # 0.1 10^3/uL (0.0-0.8); Eosinophils % 0.9 %; Hematocrit 31.2 % (37.0-47.0); Hemoglobin 10.2 g/dL (11.5-15.3); Lymphocytes # 1.7 10^3/uL (0.8-4.8); Lymphocytes % 31.1 %; Mean Corpuscular HGB Conc 32.7 g/dL (30.0-36.0); Mean Corpuscular Hemoglobin 30.4 pg (28.0-34.0); Mean Corpuscular Volume 93.1 fl (81-99); Mean Platelet Volume 11.3 fL (7.4-10.4); Monocytes # 0.7 10^3/uL (0.2-0.9); Monocytes % 12.1 %; Neutrophils # 2.95 10^3/uL (1.8-7.7); Neutrophils % 54.9 %; Nucleated Red Blood Cells % 0 %; Platelet Count 232 10^3/cmm (130-400); Red Blood Count 3.35 10^6/uL (4.1-5.3); Red Cell Distribution Width 14.6 % (12.1-15.1); White Blood Count 5.4 10^3/uL (4.0-10.0)
[2022-10-29] MEDS: cefepime 2,000 MG in sodium chloride 0.9% (plus) 50 ML 100 MG IV ×2 (02:17→12:52)
[2022-10-29 02:31] LABS: Anion Gap 14.8 (5-19); Blood Urea Nitrogen 8 mg/dL (6-20); C Reactive Protein 135.4 mg/L (0.0-4.9); Calcium 9.4 mg/dL (8.5-10.5); Carbon Dioxide 24 mmol/L (22-29); Chloride 104 mmol/L (98-107); Glomerular Filtration Rate 88.9 mL/min (90-130); Glucose 108 mg/dL (65-115); Magnesium 1.9 mg/dL (1.7-2.3); Osmolality Calculated 287 mOsm/kg (285-295); Potassium 3.8 mmol/L (3.5-5.1); Sodium 139 mmol/L (136-145)
[2022-10-29 02:37] LABS: Procalcitonin 0.43 ng/mL (0-0.5)
[2022-10-29] MEDS: vancomycin 1,500 MG/300 ML PIGGYBACK 200 MG IV ×2 (02:55→15:52)
--- NOTE | 2022-10-29 04:13 | PC.NURSE ---
Patient was NPO since midnight and was wiped down with CHG wipes. Patient's IV is patent and asymptomatic. Patient was given a pamphlet on preventing surgical site infections. Pre-op check list updated.
--- NOTE | 2022-10-29 06:35 | W.PM.OPSUD ---
Surgery/Procedure H&P Update DATE OF PROCEDURE: October 29, 2022 DATE H&P PERFORMED: 10/25/22 CHANGES TO PREVIOUS DOCUMENTATION: No changes PRIMARY INDICATION FOR PROCEDURE: Open incision right ankle PLANNED PROCEDURE: Operation Date: 10/26/22 07:10 Proposed Procedures p Incision And Drainage of right ankle(Right) - Swapnil Browne DPM Operation Date: 10/29/22 07:10 Proposed Procedures p Right Ankle Delayed Primary Closure(Right) - Swapnil Browne DPM
[2022-10-29] MEDS: sodium chloride 0.9% 1,000 ML 30 ML IV (06:41)
--- NOTE | 2022-10-29 07:44 | P.OP_ITS ---
Operative Report Date of procedure: October 29, 2022 Pre-op diagnosis: Right foot ankle deep space abscess Post-op diagnosis: Same Procedure done: Delayed primary closure right lateral ankle CPT 33825 Implants: None Specimens removed/disposition: None Surgeon: Natalia Galvan.P.MJanay Estimated blood loss: 10 cc Complications: None Brief History: Patient is a 47-year-old female that has a history of lateral right ankle abscess. The patient underwent incision and drainage of right ankle abscess 10/26/2022. She has been receiving IV antibiotics on the floor. Plan is for discharge and follow-up with orthopedic provider. Patient returns to the OR today for delayed primary closure of wound prior to discharge. A lengthy discussion regarding the procedure, including risks and complications has been had with the patient and is noted in the recent clinic note. Written and verbal consent have been obtained. All patient questions have been answered to the patient?s satisfaction. No written or verbal guarantees have been given or implied. Procedure: The patient has been NPO since midnight. The history has been reviewed and the history and physical is current. The signed consent was confirmed and placed in the patient chart. Patient imaging has been reviewed and is consistent with the diagnosis. Under mild sedation, the patient was brought into the operating room and left on the gurney in the supine position. The patient is receiving antibiotics [id number] on the floor. IV sedation was then performed by the anesthesia team. A local field block using 18 cc of 0.5% Marcaine plain was then performed. The right lower extremities then prepped, scrubbed and draped in the usual fashion. After prep, the following procedure was then performed. Attention was directed to the lateral aspect of the right ankle where a 5 cm incision was noted. A curette was used to debride the subcutaneous tissue before attention was directed irrigation. 3000 cc of sterile saline was used for irrigation of lateral right ankle wound via cystoscopy tubing. The underlying tissues appeared healthy and viable. No residual purulence was noted. The peroneal tendons were visible but appeared healthy with no signs of degeneration from the previous overlying abscess. After irrigation, attention was directed to closure of the wound. The incision was closed with 3-0 Prolene in combination of retention stitches as well as simple interrupted stitches. The incision was then dressed with Xeroform 4 x 4 gauze Kerlix and Amanuel bandage. The patient tolerated the procedure and anesthesia well and without complication. The patient was transported from the operating room to the recovery room with vital signs stable and vascular status intact to all digits of the right foot. The patient was instructed to remain weightbearing as tolera jane to the operative extremity, to keep surgical dressing clean, dry and intact. The patient will be transferred back to the floor once anesthesia criteria is met. I will continue to round on and follow the patient in the inpatient setting and provide recommendations to stabilize the patient for discharge. Given the extent of the abscess and depth of the wound down to level of bone and orthopedic hardware I recommend long-term IV antibiotic therapy. After closure of the wound today, the patient will be deemed stable for discharge from podiatry standpoint to follow-up with orthopedic provider as soon as possible.
--- NOTE | 2022-10-29 07:59 | P.PN_ITS ---
Subjective Subjective: Patient seen at bedside this morning. Doing well. Pain is much improved. Patient states that she is anxious and ready to go. She denies any other pedal complaints this time. Denies any constitutional symptoms. Vitals/I&O/Wt Last Vital Signs Temp 97.3 F L 10/29/22 07:45 Pulse 70 10/29/22 07:45 Resp 16 10/29/22 07:45 BP 133/67 10/29/22 07:45 Pulse Ox 97 10/29/22 07:45 O2 Del Method 10/29/22 07:45 O2 Flow Rate 6 10/29/22 07:38 10/28/22 10/29/22 10/29/22 22:59 06:59 14:59 Intake Total 1420 / 2110 350 / 2460 1500 / 1500 Output Total 1050 / 1050 4 / 1054 10 Balance 370 / 1060 346 / 1406 1490 / 1490 Weight last 48 hrs Weight 163 lb 4.8 oz Physical Exam Narrative: GENERAL: A&O x 3 VASCULAR: DP/PT pulses palpable 2/4 with CFT intact, <3seconds to distal digits. Severe edema to right ankle majority of swelling on lateral aspect of right ankle DERMATOLOGICAL: Right ankle surgical dressing intact this morning, clean with no strikethrough. MUSCULOSKELETAL: No tenderness with palpation of lateral right ankle NEUROLOGICAL: Neurological sensation to the affected foot and ankle is present through L4-S1 dermatomes with no hyper/hypoesthesias, negative Tinel or Valleix's sign Data 10/29/22 01:35 10/29/22 01:35 Micro: Microbiology 10/26/22 07:15 Anaerobic Culture - Preliminary Ankle - #2 10/26/22 07:15 Gram Stain - Final Ankle - #1 Abscess Culture - Final Methicillin Resis Staph Aureus A&P Assessment and plan (1) Abscess of ankle: (2) Cellulitis of right ankle: (3) Pain in right ankle: Plan -Right lateral ankle abscess -Status post right ankle incision and drainage DOS: 10/26/2022 -Status post right ankle delayed primary closure DOS: 10/29/2022 -Labs and vitals reviewed VSS -ESR 18 -CRP 313--> 135.4 -Cultures: MRSA -Okay for diet -Antibiotics: Vanco/cefepime pending ID and sensitivity -Pain: Managed by admitting physician -Weightbearing as tolerated to right foot -Keep right lower extremity elevated -Patient will need PICC line placement today (10/29/2022) and will require long- term IV antibiotics. This was discussed with Dr. 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
[2022-10-29] MEDS: buPROPion SR (12 HR) 150 mg Tablet PO ×2 (08:49→17:21)
[2022-10-29] MEDS: acetaminophen 325 mg Tablet 650 MG PO ×2 (12:45→20:18)
[2022-10-29] MEDS: morphine 4 mg/mL SDV 1 mL 2 MG IVP (12:46)
--- NOTE | 2022-10-29 13:01 | PM.PN ---
Subjective Subjective: Patient underwent surgery this morning. Endorses fatigue. Denies fevers, chills, chest pain or shortness of breath. Reports pain is well controlled. Medications: Reviewed: Yes Vitals/I&O/Wt Last Vital Signs Temp 97.5 F L 10/29/22 08:23 Pulse 74 10/29/22 12:56 Resp 18 10/29/22 12:56 BP 113/78 10/29/22 12:56 Pulse Ox 95 10/29/22 12:56 O2 Del Method 10/29/22 12:56 O2 Flow Rate 6 10/29/22 08:00 10/28/22 10/29/22 10/29/22 22:59 06:59 14:59 Intake Total 1420 / 2110 350 / 2460 1500 / 1500 Output Total 1050 / 1050 4 / 1054 Balance 370 / 1060 346 / 1406 1490 / 1490 Weight last 48 hrs Weight 74.072 kg Physical Exam Narrative: General: Patient is awake. Appears fatigued. Head: Normocephalic. Atraumatic. EOM intact. Neck: No JVD. Cardiovascular: RRR. No gallops. No murmurs. No peripheral edema. Lungs: Clear to auscultation, no use of accessory muscles, no crackles or wheezes. Skin: No jaundice. No rashes. Abdomen: Normal bowel sounds, abdomen soft and nontender. Genito Urinary: Genital exam not performed since complaints not related. Rectal: Rectal exam not performed since no symptoms indicated blood loss. Extremities: No cyanosis or clubbing. Musculoskeletal: Right ankle is wrapped. Neurological: Moves all 4 extremities. No myoclonus. Data 10/29/22 01:35 10/29/22 01:35 Micro: Microbiology 10/26/22 07:15 Anaerobic Culture - Preliminary Ankle - #2 10/26/22 07:15 Gram Stain - Final Ankle - #1 Abscess Culture - Final Methicillin Resis Staph Aureus A&P Assessment and plan (1) Abscess of ankle: Right ankle abscess and cellulitis Podiatry is following, appreciate recommendations Status post I&D, followed by closure today Continue vancomycin Continue cefepime PICC line ordered Discussed setting up HH w/ CM (2) Hypothyroidism: Continue Synthroid (3) COPD (chronic obstructive pulmonary disease): Not in acute exacerbation Continue to monitor Plan DVT ppx: Lovenox Code status: Full Code Attestations Medical Necessity Statement*: Patient requires ongoing hospitalization for IV anbiotics, PICC line placement, wound care, and podiatry care. 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
[2022-10-29 15:11] LABS: Vancomycin Trough 13.3 ug/mL (10-15)
--- NOTE | 2022-10-29 15:17 | P.ANESASSM_ITS ---
Pre-Anesthetic Assessment Height/Weight: Height 1.63 m Weight 74.072 kg Temp Pulse Resp BP Pulse Ox O2 Del Method O2 Flow Rate 97.5 F L 74 18 113/78 95 6 10/29/22 08:23 10/29/22 12:56 10/29/22 12:56 10/29/22 12:56 10/29/22 12:56 10/29/22 12:56 10/29/22 08:00 Operation Date: 10/26/22 07:10 Proposed Procedures p Incision And Drainage of right ankle(Right) - Swapnil Browne DPM Operation Date: 10/29/22 07:10 Proposed Procedures p Right Ankle Delayed Primary Closure(Right) - Swapnil Browne DPM Familial anesthetic complications: none Was Beta Mumtaz taken within 24 hours: N/A Was Clonidine taken within 24 hours: N/A Last intake: Intake Last Liquid Date 10/28/22 Last Liquid Time 23:00 Last Solid Date 10/28/22 Last Solid Time 23:00 Social No alcohol and No tobacco (h/o smoking) Exam alert, oriented x 3 and regular rate & rhythm Airway Submandibular: within normal limits Cervical ROM: within normal limits Mallampati: Class II Dentition: false Pulmonary Chronic Obstructive Pulmonary Disease Metabolic Thyroid Disease Neuropsych Anxiety and Depression Anesthetic Plan ASA status: 3 Anesthesia: Choice Medications/Allergies Home Medications Medication Instructions Recorded Confirmed Last Taken Type acetaminophen 500 mg tablet 1,000 mg PO Q6H PRN Pain 10/25/22 10/25/22 Unknown History albuterol sulfate 90 mcg/actuation 2 puff inhalation QID PRN 10/25/22 10/25/22 Unknown History aerosol inhaler Shortness Of Breath bupropion HCl 150 mg tablet,12 hr 150 mg PO BID 10/25/22 10/25/22 10/25/22 History sustained-release celecoxib 100 mg capsule (Celebrex) 100 mg PO BID 10/25/22 10/25/22 10/25/22 H istory levothyroxine 25 mcg tablet 25 mcg PO QAM 10/25/22 10/25/22 10/25/22 History ropinirole 0.25 mg tablet 0.5 mg PO BEDTIME 10/25/22 10/25/22 10/24/22 History varenicline 1 mg tablet 1 mg PO BID 10/25/22 10/25/22 10/25/22 History Allergies Allergy/AdvReac Type Severity Reaction Status Date / Time No Known Allergies Allergy Verified 10/25/22 08:54 Current Medications Generic Name Dose Route Start Last Admin Trade Name Niall PRN Reason Stop Dose Admin Acetaminophen 650 mg 10/25/22 18:03 10/29/22 12:45 Acetaminophen 325 Mg Tablet PO 650 mg Q6H PRN Administration Mild/Mod Pain Or Temp >/= 101 Bupropion HCl 150 mg 10/26/22 10:15 10/29/22 08:49 Bupropion Sr (12 Hr) 150 Mg Tablet PO 150 mg BID BONG Administration Celecoxib 100 mg 10/26/22 10:15 10/27/22 08:50 Celecoxib 100 Mg Capsule PO 100 mg BID BONG Administration Enoxaparin Sodium 40 mg 10/25/22 18:15 10/28/22 17:28 Enoxaparin 40 Mg/0.4 Ml Syringe SUBCUT 40 mg Q24H BONG Administration Vancomycin/PEG/NADA/Lysine/Water 1,500 mg in 300 mls @ 200 mls/hr 10/26/22 03:30 10/29/22 04:30 Vancocin IV Infused Q12H BONG Infusion Cefepime HCl 2,000 mg/ Sodium 50 mls @ 100 mls/hr 10/26/22 13:30 10/29/22 14:07 Chloride IV Infused Q12H BONG Infusion Protocol Levothyroxine Sodium 25 mcg 10/26/22 06:00 10/29/22 06:12 Levothyroxine 25 Mcg Tablet PO Not Given QAM BONG Morphine Sulfate 2 mg 10/25/22 18:03 10/29/22 12:46 Morphine 4 Mg/Ml Sdv 1 Ml IVP 2 mg Q4H PRN Administration SEVERE PAIN Ropinirole HCl 0.5 mg 10/25/22 21:00 10/28/22 21:00 Ropinirole 0.25 Mg Tablet PO 0.5 mg BEDTIME BONG Administration PFSH Anesthesia Medical History (Updated 10/26/22 @ 05:59 by Alexx Caldera DO) COPD (chronic obstructive pulmonary disease) Hypothyroidism Surgical History History of ankle surgery Social History (Updated 10/26/22 @ 05:59 by Alexx L Horstman, DO) Smoking and tobacco status: current some day smoker Alcohol intake: never Data Anesthesia 10/29/22 01:35 10/29/22 01:35 Short CBC 10/28/22 10/29/22 Range/Units 04:25 01:35 WBC 6.1 5.4 (4.0-10.0) 10^3/uL Hgb 9.4 L 10.2 L (11.5-15.3) g/dL Hct 29.2 L 31.2 L (37.0-47.0) % MCV 93.6 93.1 (81-99) fl Plt Count 205 232 (130-400) 10^3/cmm Neut % (Auto) 66.2 54.9 % Neut # (Auto) 4.01 2.95 (1.8-7.7) 10^3/uL BMP 10/28/22 10/29/22 04:25 01:35 Sodium 135 L 139 Potassium 3.2 L 3.8 Chloride 101 104 Carbon Dioxide 22 24 BUN 8 8 Creatinine 0.6 0.7 Glucose 112 108 Calcium 8.8 9.4 Coags 10/28/22 10/29/22 04:25 01:35 C-Reactive Protein 165.7 H 135.4 H Microbiology 10/26/22 07:15 Anaerobic Culture - Preliminary Ankle - #2 10/26/22 07:15 Gram Stain - Final Ankle - #1 Abscess Culture - Final Methicillin Resis Staph Aureus Cardiac Studies: No Data to Display
--- NOTE | 2022-10-29 15:18 | ANE.PACU2 ---
Inpatient post-anesthesia follow up: Airway intact: Yes Vital signs: Temperature 97.5 F Pulse Rate 74 Respiratory Rate 18 Blood Pressure 113/78 Pulse Oximetry 95 Oxygen Delivery Me thod Room Air Oxygen Flow Rate 6 Fraction of Inspir ed Oxygen Hydration adequate: Yes Nausea and vomiting: No Pain level: 2 Mental status: Baseline
[2022-10-29] MEDS: enoxaparin 40 mg/0.4 mL Syringe SUBCUT (17:20)
[2022-10-29] MEDS: ropinirole 0.25 mg Tablet 0.5 MG PO (20:18)
--- NOTE | 2022-10-29 23:39 | PC.NURSE ---
Dr Payton notified of low BP. Nurse instructed to give 500ml NS bolus.
[2022-10-29] MEDS: sodium chloride 0.9% 500 ML 999 ML IV (23:56)
[2022-10-30] VITALS (10 sets, daily range): BP systolic 101–124; BP diastolic 65–77; PULSE 69–86; RESP 16–18; TEMP 36.4–37.2; O2SAT 94–100
[2022-10-30] MEDS: cefepime 2,000 MG in sodium chloride 0.9% (plus) 50 ML 100 MG IV ×2 (02:09→13:38)
[2022-10-30] MEDS: acetaminophen 325 mg Tablet 650 MG PO ×2 (03:07→07:57)
[2022-10-30] MEDS: vancomycin 1,500 MG/300 ML PIGGYBACK 200 MG IV ×2 (03:07→14:30)
[2022-10-30] MEDS: levothyroxine 25 mcg Tablet PO (05:36)
--- NOTE | 2022-10-30 07:35 | PM.PN ---
Subjective Subjective: Patient seen at bedside this morning resting comfortably. States overall her pain is controlled. She did not receive PICC line yesterday. Plan is to get PICC line today. She denies any overnight events. Denies any constitutional symptoms. States that she is ready for discharge. Vitals/I&O/Wt Last Vital Signs Temp 98.9 F 10/30/22 04:00 Pulse 73 10/30/22 04:00 Resp 16 10/30/22 04:00 BP 103/66 10/30/22 04:00 Pulse Ox 97 10/30/22 04:00 O2 Del Method 10/29/22 19:47 O2 Flow Rate 6 10/29/22 08:00 10/29/22 10/30/22 10/30/22 22:59 06:59 14:59 Intake Total 700 / 2490 850 / 3340 300 / 300 Balance 700 / 2480 850 / 3330 300 / 300 Physical Exam Narrative: GENERAL: A&O x 3 VASCULAR: DP/PT pulses palpable 2/4 with CFT intact, <3seconds to distal digits. Severe edema to right ankle majority of swelling on lateral aspect of right ankle DERMATOLOGICAL: Right ankle surgical dressing intact this morning, clean with no strikethrough. MUSCULOSKELETAL: No tenderness with palpation of lateral right ankle NEUROLOGICAL: Neurological sensation to the affected foot and ankle is present through L4-S1 dermatomes with no hyper/hypoesthesias, negative Tinel or Valleix's sign Data 10/29/22 01:35 10/29/22 01:35 Micro: Microbiology 10/26/22 07:15 Anaerobic Culture - Preliminary Ankle - #2 A&P Assessment and plan (1) Abscess of ankle: (2) Cellulitis of right ankle: (3) Pain in right ankle: Plan -Right lateral ankle abscess -Status post right ankle incision and drainage DOS: 10/26/2022 -Status post right ankle delayed primary closure DOS: 10/29/2022 -Labs and vitals reviewed VSS -ESR 18 -CRP 313--> 135.4 -Cultures: MRSA MRSA M.I.C. RX --------- ------ * Ampicillin >8 R * Ciprofloxacin >2 R * Clindamycin <=0.5 S * Erythromycin <=0.5 S * Gentamicin <=4 S * Levofloxacin 4 I * Linezolid 4 S * Oxacillin >2 R * Penicillin >8 R * Rifampin <=1 S * Tetracycline <=4 S * Trimethoprim/Sulfamethoxazole <=0.5/9.5 S Vancomycin 2 S Daptomycin 1 S -Okay for diet -Antibiotics: Vanco/cefepime pending final recommendations -Pain: [place] 5?325 -Weightbearing as tolerated to right foot -Keep right lower extremity elevated -Patient will need PICC line placement today (10/30/2022) and will require long-term IV antibiotics. This was discussed with Dr. 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
[2022-10-30] MEDS: buPROPion SR (12 HR) 150 mg Tablet PO (07:57)
[2022-10-30] MEDS: HYDROcodone-acetaminophen 5-325 mg Tablet 1 TAB PO (07:58)
--- NOTE | 2022-10-30 11:00 | SUR.PREOP ---
Time out for picc line insertion
--- NOTE | 2022-10-30 11:55 | XRR_ITS ---
PROCEDURE INFORMATION: Exam: XR Chest Exam date and time: 10/30/2022 12:16 PM Age: 47 years old Clinical indication: Device placement; Picc; Additional info: Picc placement, patient is in cpru TECHNIQUE: Imaging protocol: Radiologic exam of the chest. Views: 1 view. COMPARISON: CT Up Extremity wo LEFT* [id number] 03/04/2018 8:48 AM FINDINGS: Tubes, catheters and devices: A right side PICC line is in the right atrium. Lungs: Unremarkable. No consolidation. Pleural spaces: Unremarkable. No pleural effusion. No pneumothorax. Heart/Mediastinum: Unremarkable. No cardiomegaly. Bones/joints: Metallic left humeral orthopedic hardware is in place. XR/XR chest 1V portable [id number] IMPRESSION: 1. No acute findings. 2. Right PICC line in the right atrium 3. Post surgical hardware proximal left humerus . 4. Negative for pneumothorax
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
--- NOTE | 2022-10-30 14:40 | ECG_ITS ---
[facility] Test Date: 2022-10-30 Pat Name: Velvet Maloney Department: Room: 252 Gender: Female [employer] Eligibility Assistant: : 1975 Requested By: Octaviano Fernandez Order Number: [id number] Olivares MD: Stacy Jaeger M.D. Measurements Intervals [place] Rate: 72 P: 71 MO: 166 QRS: 81 QRSD: 92 T: 48 QT: 412 QTc: 452 Interpretive Statements SINUS RHYTHM Compared to ECG 04/04/2018 08:54:01 Sinus arrhythmia no longer present Electronically Signed On 10-30-2022 18:52:06 SHEET [employer] PRINTER by Stacy Jaeger M.D. [id number]
--- NOTE | 2022-10-30 17:20 | PC.NURSE ---
Patient education reviewed with patient and daughter at bedside with teaching hands on with patient for PICC line. Daughter was able to successfully teach back. All questions and concerns addressed during day and during the teaching. Equipment will be delivered to floor for patients discharge and patient will picker and sorter load and unload in the morning when she comes to C for her appt.
== END 2022-10-30 17:20 | disposition home or self-care (01) | DRG 572 ==
LOC: ER 17:32 → MEDSURG 17:42
PROVIDERS: Family Medicine; Nurse Practitioner Family; Podiatrist Foot & Ankle Surgery; Admitting Provider Student in an Organized Health Care Education/Training Program; Emergency Provider Family Medicine; Visit Provider Internal Medicine
PROC: 0J9Q0ZX Drainage of Right Foot Subcutaneous Tissue and Fascia, Open Approach, Diagnostic (ICD-10-PCS; principal; 2022-10-26 07:00)
PROC: 0JBQ0ZZ Excision of Right Foot Subcutaneous Tissue and Fascia, Open Approach (ICD-10-PCS; CPT 13160; principal; 2022-10-29 07:00)
DX: L02.415 Cutaneous abscess of right lower limb (principal); L03.115 Cellulitis of right lower limb; E03.9 Hypothyroidism, unspecified; J44.9 Chronic obstructive pulmonary disease, unspecified; B95.62 Methicillin resistant Staphylococcus aureus infection as the cause of diseases classified elsewhere; Z79.51 Long term (current) use of inhaled steroids; Y79.1 Therapeutic (nonsurgical) and rehabilitative orthopedic devices associated with adverse incidents
CPT/HCPCS: 36415; 36569; 71045; 73610; 73700; 80048; 80053; 80202; 83036; 83605; 83735; 84145; 85025; 85651; 86140; 87040; 87070; 87075; 87077; 87186; 87205; 93005; 96365; 96367; 96372; 96375; 96376; 99285; J0692; J1650; J2270; J2405; J2704; J3010; J3370; J3490; J7030; J7040; J7050

== ENCOUNTER 2022-11-09 10:15 | Outpatient (RCR) | payer BC, MEDICAID, SELFPAY ==
[2022-10-31 11:13] VITALS: BP 127/83; PULSE 68; RESP 18; TEMP 36.3; O2SAT 99
--- NOTE | 2022-11-05 13:00 | PC.NURSE ---
Pt to GI infusions for PICC dressing change and lab draws. Pt had Vanc dose at 0900 11/05/22. Random vanc level drawn due to patient already having dose this am. Labs faxed to [facility] as requested.
[2022-11-05 14:02] LABS: C Reactive Protein 44.9 mg/L (0.0-4.9); Glomerular Filtration Rate 131.1 mL/min (90-130)
[2022-11-05 14:27] LABS: Vancomycin Random 40.6 ug/mL (20.0-40.0)
[2022-11-05 15:10] LABS: Blood Urea Nitrogen 8 mg/dL (6-20)
[2022-11-05 15:39] VITALS: BP 123/71; PULSE 66; RESP 18; TEMP 36; O2SAT 99
[2022-11-09] MEDS: DAPTOmycin 600 MG in sodium chloride 0.9% (100 ml) 100 ML 100 MG IV (10:53)
[2022-11-09 10:58] VITALS: BP 113/70; PULSE 61; RESP 18; TEMP 36; O2SAT 98
--- NOTE | 2022-11-09 10:58 | PC.NURSE ---
Pt to GI infusions for first dose of Daptomycin 600 mg IV. Vancomycin discontinued per Dr. Aly and pt to start Daptomycin 600 mg IV daily. Medicine to be provided by [facility]. Pt and daughter instructed on how to administer medication via IVP. Pt and daughter verbalized understanding. Tolerating Daptomycin without difficulty. No reaction noted.
--- NOTE | 2022-11-09 11:53 | PC.NURSE ---
[employer] infusion company notified of Daptomycin infusion time and no reaction noted.
[2022-11-13 09:58] VITALS: BP 128/58; PULSE 71; RESP 18; TEMP 36.2; O2SAT 98
--- NOTE | 2022-11-13 10:00 | PC.NURSE ---
Pt to GI infusions for PICC dressing change and lab draw. Pt and daughter state Daptomycin IVP at home is going well. Pt tolerating medication without difficulty. Labs drawn with results sent to [facility] and Dr. Aly.
[2022-11-13 10:34] LABS: Blood Urea Nitrogen 15 mg/dL (6-20); C Reactive Protein 21.2 mg/L (0.0-4.9); Creatine Phosphokinase 24 U/L (26-192); Glomerular Filtration Rate 88.9 mL/min (90-130)
[2022-11-23 09:05] VITALS: BP 113/66; PULSE 69; RESP 18; TEMP 36.1; O2SAT 100
[2022-11-23 10:23] LABS: Blood Urea Nitrogen 13 mg/dL (6-20); C Reactive Protein 28.5 mg/L (0.0-4.9); Creatine Phosphokinase 32 U/L (26-192); Creatinine Clr Calc Pharmacy 112.3673; Glomerular Filtration Rate 106.3 mL/min (90-130)
== END 2022-11-24 23:59 | disposition home or self-care (01) ==
LOC: GILAB 10:15
PROVIDERS: PCP Nurse Practitioner Family; Referring Provider Internal Medicine; Visit Provider Student in an Organized Health Care Education/Training Program
DX: L02.419 Cutaneous abscess of limb, unspecified (principal)
CPT/HCPCS: 36592; 80202; 82550; 82565; 84520; 86140; 96365; J0878

== ENCOUNTER 2022-12-06 11:12 | Outpatient (RCR) | payer BC, MEDICAID, SELFPAY ==
[2022-11-30 09:40] VITALS: BP 117/74; PULSE 66; RESP 18; TEMP 36.3; O2SAT 98
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
[2022-11-30 10:11] LABS: Blood Urea Nitrogen 12 mg/dL (6-20); C Reactive Protein 30.3 mg/L (0.0-4.9); Creatine Phosphokinase 32 U/L (26-192); Glomerular Filtration Rate 106.3 mL/min (90-130)
[2022-12-06 11:15] VITALS: BP 110/69; PULSE 63; RESP 18; TEMP 36.3; O2SAT 100
[2022-12-06 11:48] LABS: Blood Urea Nitrogen 12 mg/dL (6-20); C Reactive Protein 9.1 mg/L (0.0-4.9); Creatine Phosphokinase 33 U/L (26-192); Glomerular Filtration Rate 88.9 mL/min (90-130)
[2022-12-11 12:00] VITALS: BP 98/64; PULSE 68; RESP 18; TEMP 36.1; O2SAT 97
--- NOTE | 2022-12-11 12:24 | PC.NURSE ---
Pt to GI infusions for removal of PICC. PICC to right upper arm discontinued with 43 cm removed and cath tip intact. Pressure held for approx 5 min. Pt educated to return to PCP/ER for redness, drainage, bleeding, or SOB. Tolerated well.
== END 2022-12-25 23:59 | disposition home or self-care (01) ==
LOC: GILAB 11:12
PROVIDERS: PCP Nurse Practitioner Family; Referring Provider Internal Medicine; Visit Provider Student in an Organized Health Care Education/Training Program
DX: L03.115 Cellulitis of right lower limb (principal)
CPT/HCPCS: 36592; 82550; 82565; 84520; 86140; 99212